=== PATIENT | male | born 1945 | race Hispanic/Latino ===

== ENCOUNTER 2018-01-15 10:30 | Outpatient (RCR) | payer MEDICARE ==
[~2018-01-15 10:30] MED LIST: LIDOCAINE VISC 2% SOLN 15 ML UDC ONE; LIDOCAINE/PRILOCAINE 2.5-2.5% KIT ONE; TRIAMCINOLONE ACET 0.1% CREAM 15 GM TUBE ONE
[2018-01-15] MEDS ORDERED: LIDOCAINE/PRILOCAINE 2.5-2.5% KIT ONE (13:22)
== END 2018-01-21 ==
LOC: WCC 10:30
PROVIDERS: ATTEND Family Medicine Adult Medicine
DX: E11.59 Type 2 diabetes mellitus with other circulatory complications (principal); Y83.1 Surgical operation with implant of artificial internal device as the cause of abnormal reaction of the patient, or of later complication, without mention of misadventure at the time of the procedure; S81.801A Unspecified open wound, right lower leg, initial encounter; R60.0 Localized edema; E78.00 Pure hypercholesterolemia, unspecified; I10 Essential (primary) hypertension; I87.2 Venous insufficiency (chronic) (peripheral); N18.6 End stage renal disease; W01.198A Fall on same level from slipping, tripping and stumbling with subsequent striking against other object, initial encounter; W07.XXXA Fall from chair, initial encounter; W22.8XXA Striking against or struck by other objects, initial encounter
CPT/HCPCS: 36415; 82948

== ENCOUNTER 2018-01-22 11:08 | Outpatient (RCR) | payer MEDICARE ==
[2018-01-22] MEDS ORDERED: LIDOCAINE/PRILOCAINE 2.5-2.5% KIT ONE (13:56)
[2018-01-22] MEDS ORDERED: MINERAL OIL/PETROLAT/GLYCERI 2OZ CRM ONE (13:56)
== END 2018-02-20 ==
LOC: WCC 11:08
PROVIDERS: ATTEND Family Medicine Adult Medicine
DX: E11.59 Type 2 diabetes mellitus with other circulatory complications (principal); Y83.1 Surgical operation with implant of artificial internal device as the cause of abnormal reaction of the patient, or of later complication, without mention of misadventure at the time of the procedure; S81.801A Unspecified open wound, right lower leg, initial encounter; I87.2 Venous insufficiency (chronic) (peripheral); R60.0 Localized edema; N18.6 End stage renal disease; I10 Essential (primary) hypertension; E78.00 Pure hypercholesterolemia, unspecified; W01.198A Fall on same level from slipping, tripping and stumbling with subsequent striking against other object, initial encounter; W07.XXXA Fall from chair, initial encounter; W22.8XXA Striking against or struck by other objects, initial encounter